=== PATIENT | female | born 1995 | race Caucasian/White ===

== ENCOUNTER 2025-06-28 15:10 | Emergency (ER) | payer OTHER, SELFPAY ==
--- NOTE | ~2025-06-28 | XR_ITS ---
EXAMINATION: XR foot LT min 3V, 06/28/2025 15:27 CDT HISTORY: KNEED IN DORSAL FOOT, DISTAL 4TH METATARSAL BRUISING COMPARISON: No comparisons available. Findings: No acute fracture or malalignment. No significant degenerative changes. Soft tissues unremarkable. Impression: No acute fracture or malalignment. Reviewed, dictated and finalized at location P. Impression: No acute fracture or malalignment.
[2025-06-28 15:18] VITALS: BP 153/86; PULSE 79; RESP 16; TEMP 36.5; O2SAT 100
--- NOTE | 2025-06-28 15:41 | ED_ITS ---
HPI - Extremity Injury (Lower) General Chief Complaint: Extremity Injury, Lower Stated Complaint: Left Foot Injury Time Seen by Provider: 06/28/25 15:42 Source: patient Mode of arrival: ambulatory Limitations: no limitations History of Present Illness HPI Narrative: 29 y/o female presented for c/o left foot pain and bruising after injury 2 days ago. states while doing martial arts, the opponent landed their knee on top of her foot which was on a hard mat. Endorses decreased ROM to the 3rd and 4th toes. Has janki taped the toes. Related Data Home Medications ?Medication ?Instructions ?Recorded ?Confirmed ?Last Taken ?Type acyclovir 400 mg tablet mg 06/28/25 Unknown History desvenlafaxine succinate 50 mg mg PO 06/28/25 Unknown History tablet,extended release 24 hr lamotrigine 25 mg tablet mg 06/28/25 Unknown History Allergies Allergy/AdvReac Type Severity Reaction Status Date / Time No Known Allergies Allergy Verified 06/28/25 15:29 Review of Systems Review of Systems: CONSTITUTIONAL: Denies body aches, fever, chills CARDIOVASCULAR: Denies chest pain, palpitations, or edema. RESPIRATORY: Denies cough or dyspnea. SKIN: Denies wounds. MUSCULOSKELETAL: reports left foot pain NEUROLOGIC: Denies numbness, tingling, or weakness. All systems reviewed & are unremarkable except as noted in HPI and below PMFSH Comments At time of signature, I have reviewed and agree with nursing past medical, surgical, social and family history unless otherwise noted. Please see nursing chart for further information. There is no relevant family history pertinent to the presenting complaint Exam Narrative: GENERAL: Well-appearing CHEST: Speaks in full sentences. No respiratory distress. HEART: Regular rate and rhythm. Normal and equal peripheral pulses. EXTREMITIES: Left foot dorsal swelling over 3rd and 4th MTPs, significant bruising to the 3rd digit dorsal and plantar aspects extending to dorsal surface of foot. Decreased ROM of 3rd and 4th toes due to pain. Foot has normal sensation. No open wounds, or obvious deformity; alignment normal, pulse palpable and equal bilaterally, skin warm, dry, pink. Capillary refill less than 3 seconds. SKIN: Warm, dry NEURO: Alert and oriented x3. PSYCH: Normal mood and affect Course Course Emergency Course: Patient is aware of diagnosis, understands and agrees to treatment plan. Anticipatory guidance given. Patient agrees to follow-up as directed and is aware of reasons to seek care at the emergency department. Portions of this record may have been created with voice recognition software Level of Care: Express Care Visit Vital Signs Vital signs: Vital Signs Temperature 97.7 F 06/28/25 15:18 Pulse Rate 79 06/28/25 15:18 Respiratory Rate 16 06/28/25 15:18 Blood Pressure 153/86 H 06/28/25 15:18 Pulse Oximetry 100 06/28/25 15:18 Oxygen Delivery Room Air 06/28/25 15:18 Temperature 97.7 F 06/28/25 15:18 Pulse Rate 79 06/28/25 15:18 Respiratory Rate 16 06/28/25 15:18 Blood Pressure 153/86 H 06/28/25 15:18 Pulse Oximetry 100 06/28/25 15:18 Oxygen Delivery Room Air 06/28/25 15:18 Reviewed Procedures Orthopedic Splinting/Casting left foot: Lower Extremity Immobilizer: post-op shoe and Alf wrap MDM - Extremity Injury (Lower) MDM Narrative Medical decision making narrative: Discussed physical exam findings an x-ray. Postop shoe and Alf wrap applied. Advised supportive measures and signs/symptoms to go to the ER. Pt is appropriate for outpt treatment and f/u. Differential Diagnosis Differential diagnosis: Likely fracture of toe and other (foot fracture, foot contusion) Imaging Data Radiologist's impression: Patient: Lizz Torres : 1995 MR#: [id number] Age: 29 Acct:[id number] Loc: [facility] ADM Date: 06/28/25Attending Dr: EXAMINATION: XR foot LT min 3V, 06/28/2025 15:27 CDT HISTORY: KNEED IN DORSAL FOOT, DISTAL 4TH METATARSAL BRUISING COMPARISON: No comparisons available. Findings: No acute fracture or malalignment. No significant degenerative changes. Soft tissues unremarkable. Impression: There is a nondisplaced fracture of the distal aspect of the intermediate phalanx of the third digit, no intra-articular extension Discharge Plan Discharge Clinical Impression: Fracture of toe of left foot Patient Disposition: Home Condition: Stable Instructions: Toe Fracture (ED) Additional Instructions: Rest - avoid excessive walking, running, jumping etc elevate the left leg; bear weight as tolerated Apply ice 15-20 minute intervals several times a day Keep it wrapped with ALF as needed and wear the post op shoe Motrin 600mg every 8 hours, alternate with Tylenol 1000mg every 8 hours as needed Follow up with your primary care provider as needed follow up with composite science teacher or correspondence specialist. Go to the ER for worsening symptoms or concerns Patient Language: Luxem[place]ish Prescriptions: No Action acyclovir 400 mg tablet lamotrigine 25 mg tablet desvenlafaxine succinate 50 mg tablet extended release 24 hr PO Follow-up/Referrals: PHYSICIAN NOT ON STAFF,NONSTAFF [Primary Care Provider] Bo Cohn MD [Physician, Orthopedics] Referral Note: There is a nondisplaced fracture of the distal aspect of the intermediate phalanx of the third digit, no intra-articular extension Time of Disposition: 16:02
== END 2025-06-28 16:05 | disposition home or self-care (01) ==
PROVIDERS: Emergency Provider Nurse Practitioner Family
DX: S92.535A Nondisplaced fracture of distal phalanx of left lesser toe(s), initial encounter for closed fracture (principal); W50.0XXA Accidental hit or strike by another person, initial encounter; Y93.75 Activity, martial arts; F31.9 Bipolar disorder, unspecified
CPT/HCPCS: 73630; 99204; A4565; G0463